=== PATIENT | male | born 2000 | race Caucasian/White ===

== ENCOUNTER 2018-01-22 23:11 | Emergency (ER) | payer OTHER ==
[2018-01-22] MEDS ORDERED: NITROGLYCERIN OINT 1 INCH/GM PACKET TOPICAL STA (23:40)
--- NOTE | 2018-01-22 23:43 | ED ---
General Adult HPI - General Chief complaint: Extremity Problem,Nontraumatic Stated complaint: Foot Pain/Reynauds Dx Time Seen by Provider: 01/22/18 23:31 Source: patient, RN notes reviewed Mode of arrival: wheelchair Limitations: no limitations - History of Present Illness Initial comments: 17-year-old male presents to the emergency department with a chief complaint of pain in his toes. He was recently diagnosed with Raynaud's. He states he's been using heat to his toes and they have just continued to hurt. He states that since middle toe. He states it throbs with pain. He denies any trauma or injury to the foot. He states that he is not helping. He states he was concerned due to the continued pain so he thought that he should be seen. Patient denies any recent fever, chills, shortness of breath, chest pain, back pain, abdominal pain, nausea vomiting, numbness or tingling, dysuria or hematuria, constipation or diarrhea, headaches or visual changes, or any other current symptoms. - Related Data Previous Rx's Medication Instructions Recorded Nitroglycerin Oint [Nitro-Bid Oint] 1 inch TRANSDERM Q8H #1 tube 01/23/18 Allergies Allergy/AdvReac Type Severity Reaction Status Date / Time No Known Allergies Allergy Verified 01/22/18 23:19 Review of Systems ROS Statement: Those systems with pertinent positive or pertinent negative responses have been documented in the HPI. ROS Other: All systems not noted in ROS Statement are negative. Past Medical History Additional Past Medical History / Comment(s): raynaud's. History of Any Multi-Drug Resistant Organisms: None Reported Past Surgical History: No Surgical Hx Reported Past Psychological History: No Psychological Hx Reported Smoking Status: Never smoker Past Alcohol Use History: None Reported Past Drug Use History: None Reported General Exam - General Exam Comments Initial Comments: General: The patient is awake and alert, in no distress, and does not appear acutely ill. Neck: The neck is supple, there is no tenderness. Cardiovascular: There is a regular rate and rhythm. No murmur, rub or gallop is appreciated. Respiratory: Lungs are clear to auscultation, respirations are non-labored, breath sounds are equal. No wheezes, stridor, rales, or rhonchi. Musculoskeletal: Sensation intact with 2+ pulses throughout the left lower x- ray. Syriac motion of left foot. Patient has good capillary refill to the base of all toes. Patient has delayed capillary refill to the third and fourth digit on the left foot. Neurological: CN II-XII intact, There are no obvious motor or sensory deficits. Coordination appears grossly intact. Speech is normal. Skin: Skin is warm and dry and no rashes or lesions are noted. Psychiatric: Normal mood and affect. Limitations: no limitations Course Vital Signs 01/22/18 23:15 Temperature 98.4 F Pulse Rate 83 Respiratory 16 Rate Blood Pressure 138/72 O2 Sat by Pulse 99 Oximetry Medical Decision Making - Medical Decision Making 17-year-old male presents for left foot pain. He does have a history of Raynaud 's. At this time nitroglycerin ointment was applied to the toes. The ointment did help with the patient's symptoms. The patient does have a vascular doctor who is currently managing at this time. At this time patient did have improvement to his symptoms. Patient They felt it improved. At this time we discussed continued follow-up with his surgeon. We discussed return parameters all questions. The patient stated that he understood and he is agreement this plan. All questions have been answered. He will be discharged. Disposition Clinical Impression: Raynaud disease Disposition: HOME SELF-CARE Condition: Stable Instructions: Raynaud Disease (ED) Additional Instructions: Please use medication as discussed. Please follow up with family doctor if symptoms have not improved over the next two days. Please return to the emergency room if your symptoms increase or worsen or for any other concerns. Prescriptions: Nitroglycerin Oint [Nitro-Bid Oint] 1 inch TRANSDERM Q8H #1 tube Referrals: Berenice Pepper MD [STAFF PHYSICIAN] - 1-2 days Time of Disposition: 00:55
[2018-01-23 01:01] VITALS: BP 124/68; PULSE 79; RESP 18; TEMP 97.6
== END 2018-01-23 01:01 | disposition home or self-care (01) ==
LOC: EC 23:11
DX: I73.00 Raynaud's syndrome without gangrene (principal)
CPT/HCPCS: 99283